=== PATIENT | male | born 1945 | race Caucasian/White ===

== ENCOUNTER 2016-12-31 07:39 | Emergency (ER) | payer BC ==
[~2016-12-31 07:39] MED LIST: Silver Sulfadiazine 1% Crm 50 GM Tube TOP ONE
[2016-12-31] MEDS ORDERED: Silver Sulfadiazine 1% Crm 50 GM Tube TOP ONE (07:46)
== END 2016-12-31 07:49 | disposition home or self-care (01) ==
LOC: MW.ED 07:39
DX: Z53.21 Procedure and treatment not carried out due to patient leaving prior to being seen by health care provider (principal)
CPT/HCPCS: A9270-GY

== ENCOUNTER 2018-06-30 07:11 | Day surgery (SDC) | payer BC, MEDICARE ==
[2018-06-30] MEDS ORDERED: Bupivacaine 0.25%/EPINEPHrine 1:200,000 10 ML SDV ONE (07:31)
[2018-06-30] MEDS ORDERED: Bupivacaine 0.25%/EPINEPHrine 1:200,000 10 ML SDV INJECT ONE (08:00)
[2018-06-30] MEDS ORDERED: Lactated Ringers 1,000 ML IV SCH (08:00)
[2018-06-30] MEDS ORDERED: ceFAZolin 2 GM in Premix Bag 1 BAG IV ONE (08:00)
--- NOTE | 2018-06-30 09:34 | PCM.PREANE ---
Preanesthetic Assessment - Anesthesia/Transfusion/Family Hx Anesthesia History: No Prior Anesthesia Family History of Anesthesia Reaction: No Transfusion History: No Prior Transfusion(s) Intubation History: Unknown - Review of Systems General: No Symptoms Pulmonary: No Symptoms Cardiovascular: No Symptoms Gastrointestinal: No Symptoms Neurological: No Symptoms Other: Reports: None - Physical Assessment NPO Status Date: 06/29/18 NPO Status Time: 20:00 O2 Sat by Pulse Oximetry: 99 Respiratory Rate: 18 Vital Signs: Last Vital Signs Temp 35.8 C 06/30/18 08:25 Pulse Resp 18 06/30/18 08:25 BP 196/90 H 06/30/18 08:25 Pulse Ox 99 06/30/18 08:25 Height: 1.91 m Weight: 117.48 kg ASA Class: 2 Mental Status: Alert & Oriented x3 Airway Class: Mallampati = 2 Dentition: Reports: Normal Dentition Thyro-Mental Finger Breadths: 3 Mouth Opening Finger Breadths: 3 ROM/Head Extension: Full Lungs: Clear to Auscultation, Normal Respiratory Effort Cardiovascular: Regular Rate, Regular Rhythm - Allergies Allergies/Adverse Reactions: Allergies Allergy/AdvReac Type Severity Reaction Status Date / Time No Known Allergies Allergy Verified 06/29/18 11:08 - Blood Blood Available: No - Anesthesia Plan Pre-Op Medication Ordered: None - Acknowledgements Anesthesia Type Planned: MAC Pt an Appropriate Candidate for the Planned Anesthesia: Yes Alternatives and Risks of Anesthesia Discussed w Pt/Guardian: Yes Pt/Guardian Understands and Agrees with Anesthesia Plan: Yes PreAnesthesia Questionnaire HEENT History: Reports: Other (See Below) Other HEENT History: wears glasses Other Genitourinary History: hx of prostate cancer- no treatment Musculoskeletal History: Reports: Neck Pain, Chronic, Other (See Below) Other Musculoskeletal History: hx of neck and shoulder pain, hx of fx left wrist and foot (no hardware) Neurological History: Reports: Other (See Below) Other Neuro History: hx of motion sickness on the sea, not on land Endocrine/Metabolic History: Reports: Obesity/BMI 30+ Oncologic (Cancer) History: Reports: Prostate (patient decided not to have any treatment- diagnosed 4 years ago, doing well so far) - SUBSTANCE USE Smoking Status *Q: Never Smoker Recreational Drug Use History: No - HOME MEDS Home Medications: Home Meds Aspirin 325 mg PO DAILY PRN 06/29/18 [History] - CURRENT (IN HOUSE) MEDS Current Meds: Current Medications Lactated Ringer's (Ringers, Lactated) 1,000 mls @ 125 mls/hr IV ASDIRECTED [facility] Last Admin: 06/30/18 08:45 Dose: 125 mls/hr Discontinued Medications Bupivacaine HCl/Epinephrine Bitart (Marcaine 0.25%/Epinephrine 1:200,000) 10 ml INJECT ONETIME ONE Stop: 06/30/18 08:01 Bupivacaine HCl/Epinephrine Bitart (Marcaine 0.25%/Epinephrine 1:200,000) Confirm Administered Dose 10 ml .ROUTE .STK-MED ONE Stop: 06/30/18 07:32 Cefazolin Sodium/Dextrose 2 gm (/ Premix) 50 mls @ 100 mls/hr IV ONETIME ONE Stop: 06/30/18 08:29
[2018-06-30] MEDS ORDERED: Propofol 200 MG/20 ML SDV ONE (09:55)
[2018-06-30] MEDS ORDERED: Lidocaine 2% 5 ML SDV ONE (09:56)
[2018-06-30] MEDS ORDERED: ceFAZolin 1 GM Vial ONE (10:36)
--- NOTE | 2018-06-30 12:04 | PCM.POSTAN ---
POST ANESTHESIA ASSESSMENT - MENTAL STATUS Mental Status: Alert, Oriented - RESPIRATORY Respiratory Status: Respiratory Rate WNL, Airway Patent, O2 Saturation Stable - CARDIOVASCULAR CV Status: Pulse Rate WNL, Blood Pressure Stable - GASTROINTESTINAL GI Status: No Symptoms - PAIN Pain Score: 0 - POST OP HYDRATION Hydration Status: Adequate & Stable - OBSERVATIONS Free Text/Narrative:: no anesthesia problems, patient skipped recovery room phase of postoperative care.
--- NOTE | 2018-06-30 15:50 | PCM.OPNOTE ---
- General Post-Op/Procedure Note Date of Surgery/Procedure: 06/30/18 Operative Procedure(s): excision of basal cell carcinomas left quaker 3cm and left neck 2cm Pre Op Diagnosis: basal cell left neck and face Post-Op Diagnosis: Same Anesthesia Technique: Local, MAC Primary Surgeon: Thuy Farmer Toy Electric Train Repairer: Karla Lou Complications: None Condition: Good Free Text/Narrative:: Intake & Output 06/29/18 06/30/18 06/30/18 23:59 07:59 15:59 Intake Total 150 Balance 150
--- NOTE | 2018-06-30 23:09 | OR ---
SURGEON: THUY FARMER MD DATE OF PROCEDURE: 06/30/2018 PREOPERATIVE DIAGNOSIS: Basal cell carcinomas of the left yazdanism and left neck. POSTOERATIVE DIAGNOSIS: Basal cell carcinomas of the left yazdanism and left neck. PROCEDURES PERFORMED: Excision of basal cell carcinoma to the left yazdanism of 3 cm with simple closure, and in left neck of 2 cm with simple closure and frozen section. PRIMARY SURGEON: Thuy Farmer MD. MARINE CONSULTANT: SALVADOR Beebe. REASON FOR AND ROLE OF MARINE CONSULTANT: Retraction, prepping, draping, positioning and closure assistance. ANESTHESIA: Local MAC. INDICATIONS: Mr. Spain is a 73-year-old gentleman, who has basal cell carcinoma on the left yazdanism. He was treated previously with cryotherapy and Efudex, and unfortunately, was lost to follow up. The patient has been conservatively managing it, thinking that it would possibly improve on its own. We did discuss risks and benefits today, and I do not think that these will take care of themselves. Fortunately, they are basal cells, and thus excision, is usually the curative. Risks and benefits were discussed and he was in agreement to proceed. Risks were including, but not limited to, bleeding, infection, damage to underlying or overlying structures, possible need for future intervention, and possible scarring. In addition, he does understand that he is at high risk for additional lesions and recurrence in the future. He will continue close vigilance. PROCEDURAL DETAILS: After informed consent was obtained and placed on the chart, the patient was brought to the operating theater and laid in the supine position. After adequate local MAC anesthesia was obtained, the area was prepped and draped, and a time-out was completed to confirm side and site. The left yazdanism lesion was excised for a total length of 3 cm in an elliptical fashion and sent for pathology with a marking stitch at the 12 o'clock position. The left neck lesion was then excised and sent for permanent sections for a total length of 2 cm. This was also marked at 12 o'clock lateral. Frozen sections came back negative on the left yazdanism lesion and meticulous hemostasis was obtained. The wound was closed in a simple fashion over a total length of 3 cm. Once adequately addressed, the left neck was closed in a simple fashion for 2 cm. Once adequately closed, the Steri-Strip in the left yazdanism was dressed with bacitracin. The patient tolerated this well, and all counts and needles were correct at the end of the case. FOLLOWUP INSTRUCTIONS: The patient will see us in the clinic in approximately 1 week or sooner if any problems, questions, or concerns. HEALFRED / YAMIL /[id number]
== END 2018-06-30 12:25 | disposition home or self-care (01) ==
LOC: MW.SDS 07:11
PROVIDERS: ATTEND Plastic Surgery
DX: C44.319 Basal cell carcinoma of skin of other parts of face (principal); C44.41 Basal cell carcinoma of skin of scalp and neck; Z85.46 Personal history of malignant neoplasm of prostate
CPT/HCPCS: 11622; 11643; 88305; 88331; J0690; J2001; J2704; J3490; J7120; 00300

== ENCOUNTER 2019-09-22 03:16 | Emergency (ER) | payer SELFPAY ==
[2019-09-22] MEDS ORDERED: Sodium Chloride 0.9% 2.5 ML Syringe FLUSH PRN (03:32)
[2019-09-22] MEDS ORDERED: Sodium Chloride 0.9% 10 ML Syringe FLUSH PRN (03:32)
[2019-09-22 04:04] LABS: CARBON DIOXIDE,CO2 27.8 mmol/L (21.0-32.0); POTASSIUM,K 3.4 mmol/L (3.5-5.1)
--- NOTE | 2019-09-22 05:59 | EDM.PDOC ---
ED HPI GENERAL MEDICAL PROBLEM - General Chief Complaint: Abdominal Pain Stated Complaint: FAILURE TO VOID Time Seen by Provider: 09/22/19 03:45 Source of Information: Reports: Patient History Limitations: Reports: No Limitations - History of Present Illness INITIAL COMMENTS - FREE TEXT/NARRATIVE: HISTORY AND PHYSICAL: History of present illness: This is a 74-year-old gentleman who presents ER today secondary to suprapubic discomfort secondary to inability to void last night. Patient does have a history significant for prostate problems and is currently being evaluated for enlarged prostate. Patient reports that he is scheduled to have a PSA drawn today. Patient denies any other symptomatology. Patient has any recent fevers, shakes, chills, nausea, vomiting, diarrhea, dysuria, frequency, urgency. Patient reports he has been able to urinate small amounts but is having a lot of discomfort in the suprapubic region. Review of systems: As per history of present illness and below otherwise all systems reviewed and negative. Past medical history: As per history of present illness and as reviewed below otherwise noncontributory. Surgical history: As per history of present illness and as reviewed below otherwise noncontributory. Social history: No reported history of drug or alcohol abuse. Family history: As per history of present illness and as reviewed below otherwise noncontributory. Physical exam: Constitutional: Patient is oriented to person, place, and time. Appears well- developed and well-nourished. No distress. HEENT: Moist mucous membranes Head: Normocephalic and atraumatic Eyes: Right eye exhibits no discharge. Left eye exhibits no discharge. No scleral icterus Neck: Normal range of motion. No tracheal deviation present. Cardiovascular: Normal rate and regular rhythm. Pulmonary: Effort normal, no respiratory distress. Abd: Soft, suprapubic distended, no rebound/guarding, no psoas or obturator signs, no tenderness at Mcberney's point, no Tapia's sign. Pt does not present with an exam that would be consistent with an acute surgical abdomen at this time, mild tenderness palpation suprapubic region Musculoskeletal: Normal range of motion Neurologic: Alert and oriented to person, place and time. Skin: [place], warm and dry. Psychiatric: Normal mood and affect. Behavior is normal. Judgment and thought content normal. Nursing note and vital signs have been reviewed Diagnostics: [] Therapeutics: Suresh catheter placed with approximately 1600 cc of urine expelled. Patient reports immediate relief in pain. CBC and CMP are within normal limits. Patient's creatinine is 2.0 which is likely secondary to possible acute obstruction. This should resolve since the obstruction has now been addressed. Impression: 1. Urinary outlet obstruction with elevated creatinine. Plan: Patient will be discharged home with a Suresh catheter in place. Patient will need to follow-up with his urologist for reevaluation and removal of his catheter. Patient will be started on Hytrin and Flomax in the ED. Definitive disposition and diagnosis as appropriate pending reevaluation and review of above. abdomen Pain Score (Numeric/FACES): 8 - Related Data Allergies Allergy/AdvReac Type Severity Reaction Status Date / Time No Known Allergies Allergy Verified 09/22/19 03:30 Home Meds: Home Meds Aspirin 325 mg PO DAILY PRN 06/29/18 [History] Past Medical History HEENT History: Reports: Impaired Vision, Other (See Below) Other HEENT History: wears glasses Other Genitourinary History: hx of prostate cancer- no treatment Musculoskeletal History: Reports: Neck Pain, Chronic, Other (See Below) Other Musculoskeletal History: hx of neck and shoulder pain, hx of fx left wrist and foot (no hardware) Neurological History: Reports: Other (See Below) Other Neuro History: hx of motion sickness on the sea, not on land Endocrine/Metabolic History: Reports: Obesity/BMI 30+ Oncologic (Cancer) History: Reports: Prostate - Infectious Disease History Infectious Disease History: Reports: Chicken Pox, Measles, Mumps - Past Surgical History HEENT Surgical History: Reports: None Male Surgical History: Reports: None Neurological Surgical History: Reports: None Musculoskeletal Surgical History: Reports: None Oncologic Surgical History: Reports: None Social & Family History - Family History Family Medical History: Noncontributory - Tobacco Use Smoking Status *Q: Never Smoker Second Hand Smoke Exposure: No - Caffeine Use Caffeine Use: Reports: Coffee - Recreational Drug Use Recreational Drug Use: No ED ROS GENERAL - Review of Systems Review Of Systems: Comprehensive ROS is negative, except as noted in HPI. ED EXAM, GENERAL - Physical Exam Exam: See Below Course - Vital Signs Last Recorded V/S: Last Vital Signs Temp 96.9 F 09/22/19 03:18 Pulse 72 09/22/19 04:55 Resp 16 09/22/19 04:55 BP 160/83 H 09/22/19 04:55 Pulse Ox 94 L 09/22/19 04:55 - Orders/Labs/Meds Orders: Active Orders 24 hr Category Date Time Status Suresh Catheter Insertion [Insert Urinary Catheter] [OM. Care 09/22/19 03:45 Ordered PC] Q24H Urinary Catheter Assessment [RC] ASDIRECTED Care 09/22/19 03:33 Active Sodium Chloride 0.9% [Saline Flush] Med 09/22/19 03:32 Active 10 ml FLUSH ASDIRECTED PRN Sodium Chloride 0.9% [Saline Flush] Med 09/22/19 03:32 Active 2.5 ml FLUSH ASDIRECTED PRN Saline Lock Insert [OM.PC] Stat Oth 09/22/19 03:32 Ordered Medication Orders Sodium Chloride (Saline Flush) 10 ml FLUSH ASDIRECTED PRN PRN Reason: Keep Vein Open Sodium Chloride (Saline Flush) 2.5 ml FLUSH ASDIRECTED PRN PRN Reason: Keep Vein Open Labs: Laboratory Tests 09/22/19 09/22/19 09/22/19 Range/Units 03:35 03:35 03:35 WBC 11.08 H (4.0-11.0) K/uL RBC 4.78 (4.50-5.90) M/uL Hgb 15.4 (13.0-17.0) g/dL Hct 43.0 (38.0-50.0) % MCV 90.0 (80.0-98.0) fL MCH 32.2 H (27.0-32.0) pg MCHC 35.8 (31.0-37.0) g/dL RDW Std Deviation 41.1 (28.0-62.0) fl RDW Coeff of Jose 12 (11.0-15.0) % Plt Count 209 (150-400) K/uL MPV 10.90 (7.40-12.00) fL Neut % (Auto) 75.2 (48.0-80.0) % Lymph % (Auto) 14.5 L (16.0-40.0) % Atkinson % (Auto) 8.8 (0.0-15.0) % Eos % (Auto) 1.3 (0.0-7.0) % Baso % (Auto) 0.2 (0.0-1.5) % Neut # (Auto) 8.3 H (1.4-5.7) K/uL Lymph # (Auto) 1.6 (0.6-2.4) K/uL Atkinson # (Auto) 1.0 H (0.0-0.8) K/uL Eos # (Auto) 0.1 (0.0-0.7) K/uL Baso # (Auto) 0.0 (0.0-0.1) K/uL Nucleated RBC % 0.0 /100WBC Nucleated RBCs # 0 K/uL Sodium 137 (136-148) mmol/L Potassium 3.4 L (3.5-5.1) mmol/L Chloride 101 (98-107) mmol/L Carbon Dioxide 27.8 (21.0-32.0) mmol/L BUN 19 H (7.0-18.0) mg/dL Creatinine 2.0 H (0.8-1.3) mg/dL Est Cr Clr Drug Dosing 38.58 mL/min Estimated GFR (MDRD) 32.6 ml/min Glucose 148 H (74-106) mg/dL Calcium 8.3 L (8.5-10.1) mg/dL Total Bilirubin 1.3 H (0.2-1.0) mg/dL AST 20 (15-37) IU/L ALT 22 (14-63) IU/L Alkaline Phosphatase 76 (46-116) U/L Total Protein 7.2 (6.4-8.2) g/dL Albumin 3.6 (3.4-5.0) g/dL Globulin 3.6 (2.6-4.0) g/dL Albumin/Globulin Ratio 1.0 (0.9-1.6) PSA Screen 586.31 H (0.05-4.00) ng/mL Urine Color Urine Appearance Urine pH (5.0-8.0) Ur Specific Caspar (1.001-1.035) Urine Protein (NEGATIVE) mg/dL Urine Glucose (UA) (NEGATIVE) mg/dL Urine Ketones (NEGATIVE) mg/dL Urine Occult Blood (NEGATIVE) Urine Nitrite (NEGATIVE) Urine Bilirubin (NEGATIVE) Urine Urobilinogen (<2.0) EU/dL Ur Leukocyte Esterase (NEGATIVE) Urine RBC (0-2/HPF) Urine WBC (0-5/HPF) Ur Epithelial Cells (NONE-FEW) Urine Bacteria (NEGATIVE) Urine Mucus (NONE-MOD) 09/22/19 Range/Units 03:38 WBC (4.0-11.0) K/uL RBC (4.50-5.90) M/uL Hgb (13.0-17.0) g/dL Hct (38.0-50.0) % MCV (80.0-98.0) fL MCH (27.0-32.0) pg MCHC (31.0-37.0) g/dL RDW Std Deviation (28.0-62.0) fl RDW Coeff of Jose (11.0-15.0) % Plt Count (150-400) K/uL MPV (7.40-12.00) fL Neut % (Auto) (48.0-80.0) % Lymph % (Auto) (16.0-40.0) % Atkinson % (Auto) (0.0-15.0) % Eos % (Auto) (0.0-7.0) % Baso % (Auto) (0.0-1.5) % Neut # (Auto) (1.4-5.7) K/uL Lymph # (Auto) (0.6-2.4) K/uL Atkinson # (Auto) (0.0-0.8) K/uL Eos # (Auto) (0.0-0.7) K/uL Baso # (Auto) (0.0-0.1) K/uL Nucleated RBC % /100WBC Nucleated RBCs # K/uL Sodium (136-148) mmol/L Potassium (3.5-5.1) mmol/L Chloride (98-107) mmol/L Carbon Dioxide (21.0-32.0) mmol/L BUN (7.0-18.0) mg/dL Creatinine (0.8-1.3) mg/dL Est Cr Clr Drug Dosing mL/min Estimated GFR (MDRD) ml/min Glucose (74-106) mg/dL Calcium (8.5-10.1) mg/dL Total Bilirubin (0.2-1.0) mg/dL AST (15-37) IU/L ALT (14-63) IU/L Alkaline Phosphatase (46-116) U/L Total Protein (6.4-8.2) g/dL Albumin (3.4-5.0) g/dL Globulin (2.6-4.0) g/dL Albumin/Globulin Ratio (0.9-1.6) PSA Screen (0.05-4.00) ng/mL Urine Color DARK YELLOW Urine Appearance CLEAR Urine pH 6.5 (5.0-8.0) Ur Specific Caspar 1.020 (1.001-1.035) Urine Protein NEGATIVE (NEGATIVE) mg/dL Urine Glucose (UA) NEGATIVE (NEGATIVE) mg/dL Urine Ketones NEGATIVE (NEGATIVE) mg/dL Urine Occult Blood TRACE-INTACT H (NEGATIVE) Urine Nitrite NEGATIVE (NEGATIVE) Urine Bilirubin NEGATIVE (NEGATIVE) Urine Urobilinogen 0.2 (<2.0) EU/dL Ur Leukocyte Esterase NEGATIVE (NEGATIVE) Urine RBC 4-6 (0-2/HPF) Urine WBC 0-2 (0-5/HPF) Ur Epithelial Cells FEW (NONE-FEW) Urine Bacteria FEW (NEGATIVE) Urine Mucus LIGHT (NONE-MOD) Meds: Medications Generic Name Dose Route Start Last Admin Trade Name Freq PRN Reason Stop Dose Admin Sodium Chloride 10 ml 09/22/19 03:32 Saline Flush FLUSH ASDIRECTED PRN Keep Vein Open Sodium Chloride 2.5 ml 09/22/19 03:32 Saline Flush FLUSH ASDIRECTED PRN Keep Vein Open Departure - Departure Time of Disposition: 05:57 Disposition: Home, Self-Care 01 Condition: Good Clinical Impression: Elevated serum creatinine, Acute urinary retention, Urinary outflow obstruction - Discharge Information *PRESCRIPTION DRUG MONITORING PROGRAM REVIEWED*: Not Applicable *COPY OF PRESCRIPTION DRUG MONITORING REPORT IN PATIENT CELIO: Not Applicable Instructions: Indwelling Urinary Catheter Care, Adult, Acute Urinary Retention, Male Referrals: Tyler Das MD [Primary Care Provider] - Additional Instructions: You were seen and evaluated today secondary to acute urinary retention which is most likely secondary to an enlarged prostate. You will be discharged home with a leg Suresh catheter in place. You will be started on Flomax to assist when your catheter is removed. Please make an appointment to see your doctor for further evaluation of your urinary obstruction. Please keep your appointment today with Dr. Dey. You will be started on Flomax 1 pill once a day. The following information is given to patients seen in the emergency department who are being discharged to home. This information is to outline your options for follow-up care. We provide all patients seen in our emergency department with a follow-up referral. The need for follow-up, as well as the timing and circumstances, are variable depending upon the specifics of your emergency department visit. If you don't have a primary care physician on staff, we will provide you with a referral. We always advise you to contact your personal physician following an emergency department visit to inform them of the circumstance of the visit and for follow-up with them and/or the need for any referrals to a consulting specialist. The emergency department will also refer you to a specialist when appropriate. This referral assures that you have the opportunity for follow-up care with a specialist. All of these measure are taken in an effort to provide you with optimal care, which includes your follow-up. Under all circumstances we always encourage you to contact your private physician who remains a resource for coordinating your care. When calling for follow-up care, please make the office aware that this follow-up is from your recent emergency room visit. If for any reason you are refused follow-up, please contact the [facility] Emergency Department at and asked to speak to the emergency department charge nurse. Sepsis Event Note (ED) - Evaluation Sepsis Screening Result: No Definite Risk - Focused Exam Vital Signs: Vital Signs Temp Pulse Resp BP Pulse Ox 09/22/19 04:55 72 16 160/83 H 94 L 09/22/19 04:25 74 17 159/80 H 95 09/22/19 03:55 74 18 175/84 H 95 09/22/19 03:18 96.9 F 89 18 191/98 H 95 - My Orders Last 24 Hours: My Active Orders 09/22/19 03:32 Sodium Chloride 0.9% [Saline Flush] 10 ml FLUSH ASDIRECTED PRN Sodium Chloride 0.9% [Saline Flush] 2.5 ml FLUSH ASDIRECTED PRN Saline Lock Insert [OM.PC] Stat 09/22/19 03:33 Urinary Catheter Assessment [RC] ASDIRECTED 09/22/19 03:45 Suresh Catheter Insertion [Insert Urinary Catheter] [OM.PC] Q24H - Assessment/Plan Last 24 Hours: My Active Orders 09/22/19 03:32 Sodium Chloride 0.9% [Saline Flush] 10 ml FLUSH ASDIRECTED PRN Sodium Chloride 0.9% [Saline Flush] 2.5 ml FLUSH ASDIRECTED PRN Saline Lock Insert [OM.PC] Stat 09/22/19 03:33 Urinary Catheter Assessment [RC] ASDIRECTED 09/22/19 03:45 Suresh Catheter Insertion [Insert Urinary Catheter] [OM.PC] Q24H
[2019-09-22] MEDS ORDERED: Tamsulosin 0.4 MG Cap.ER PO ONE (06:00)
== END 2019-09-22 06:23 | disposition home or self-care (01) ==
LOC: MW.ED 03:16
DX: N40.1 Benign prostatic hyperplasia with lower urinary tract symptoms (principal); N13.8 Other obstructive and reflux uropathy; R33.9 Retention of urine, unspecified; E66.9 Obesity, unspecified; Z68.32 Body mass index [BMI] 32.0-32.9, adult; R79.89 Other specified abnormal findings of blood chemistry
CPT/HCPCS: 36415; 51702; 80053; 81001; 85025; 99284; A9270; G0103

== ENCOUNTER 2019-10-10 17:35 | Observation (INO) | payer MEDICARE ==
[~2019-10-10 17:35] MED LIST changes: +Lactated Ringers 1,000 ML IV SCH; -Silver Sulfadiazine 1% Crm 50 GM Tube TOP ONE; +Sodium Chloride 0.9% 10 ML SDV IV PRN; +Sodium Chloride 0.9% 10 ML Syringe FLUSH PRN; +Sodium Chloride 0.9% 2.5 ML Syringe FLUSH PRN
[2019-10-10] MEDS: ceFAZolin 2 GM in Premix Bag 1 BAG IV SCH ×2 (18:28→22:13)
[2019-10-11] MEDS: ceFAZolin 2 GM in Premix Bag 1 BAG IV SCH ×5 (04:22→23:59)
[2019-10-11] MEDS ORDERED: Ondansetron 4 MG/2 ML SDV ONE (07:14)
[2019-10-11] MEDS ORDERED: Propofol 200 MG/20 ML SDV ONE (07:14)
[2019-10-11] MEDS ORDERED: Midazolam 1 MG/ML 2 ML SDV ONE (07:15)
[2019-10-11] MEDS ORDERED: fentaNYL 100 MCG/2 ML SDV ONE (07:15)
[2019-10-11] MEDS ORDERED: ceFAZolin 1 GM Vial ONE (07:36)
[2019-10-11] MEDS ORDERED: Sodium Chloride 0.9% 20 ML ONE (07:36)
--- NOTE | 2019-10-11 07:36 | PCM.PREANE ---
Preanesthetic Assessment - Anesthesia/Transfusion/Family Hx Anesthesia History: Prior Anesthesia Without Reaction Family History of Anesthesia Reaction: No Transfusion History: No Prior Transfusion(s) Intubation History: Unknown - Review of Systems General: No Symptoms Pulmonary: No Symptoms Cardiovascular: No Symptoms Gastrointestinal: No Symptoms Neurological: No Symptoms Other: Reports: None - Physical Assessment Vital Signs: Last Vital Signs Temp 97.6 F 10/11/19 04:00 Pulse 63 10/11/19 04:00 Resp 18 10/11/19 04:00 BP 149/89 H 10/11/19 04:00 Pulse Ox 96 10/11/19 04:00 Height: 6 ft 3 in Weight: 117.282 kg ASA Class: 2 Mental Status: Alert & Oriented x3 Airway Class: Mallampati = 2 Dentition: Reports: Normal Dentition ROM/Head Extension: Full Lungs: Clear to Auscultation, Normal Respiratory Effort Cardiovascular: Regular Rate, Regular Rhythm - Lab Values: Laboratory Last Values COVID-19 (SERGEI) NEGATIVE (NEGATIVE) 10/10/19 18:45 - Allergies Allergies/Adverse Reactions: Allergies Allergy/AdvReac Type Severity Reaction Status Date / Time No Known Allergies Allergy Verified 09/22/19 03:30 - Blood Blood Available: No - Anesthesia Plan Pre-Op Medication Ordered: None - Acknowledgements Anesthesia Type Planned: Spinal Pt an Appropriate Candidate for the Planned Anesthesia: Yes Alternatives and Risks of Anesthesia Discussed w Pt/Guardian: Yes Pt/Guardian Understands and Agrees with Anesthesia Plan: Yes Additional Comments: PMH: prostate ca, urinary retention- now has mistry, creat elevation with urin retention PLAN: spinal with sedation PreAnesthesia Questionnaire HEENT History: Reports: Impaired Vision, Other (See Below) Other HEENT History: wears glasses Genitourinary History: Reports: Prostate Disorder, Retention, Urinary Other Genitourinary History: hx of prostate cancer- no treatment Musculoskeletal History: Reports: Neck Pain, Chronic, Other (See Below) Other Musculoskeletal History: hx of neck and shoulder pain, hx of fx left wrist and foot (no hardware) Neurological History: Reports: Other (See Below) Other Neuro History: hx of motion sickness on the sea, not on land Endocrine/Metabolic History: Reports: Obesity/BMI 30+ Oncologic (Cancer) History: Reports: Prostate - Infectious Disease History Infectious Disease History: Reports: Chicken Pox, Measles, Mumps - Past Surgical History HEENT Surgical History: Reports: None Male Surgical History: Reports: None Neurological Surgical History: Reports: None Musculoskeletal Surgical History: Reports: None Oncologic Surgical History: Reports: None Dermatological Surgical History: Reports: Skin Biopsy - SUBSTANCE USE Smoking Status *Q: Never Smoker Second Hand Smoke Exposure: No Recreational Drug Use History: No - HOME MEDS Home Medications: Home Meds Aspirin 325 mg PO DAILY PRN 06/29/18 [History] Tamsulosin HCl [Flomax] 0.4 mg PO DAILY #14 capsule 09/22/19 [Rx] - CURRENT (IN HOUSE) MEDS Current Meds: Current Medications Lactated Ringer's (Ringers, Lactated) 1,000 mls @ 100 mls/hr IV ASDIRECTED [facility] Last Admin: 10/10/19 18:27 Dose: 100 mls/hr Documented by: Cefazolin Sodium/Dextrose 2 gm (/ Premix) 50 mls @ 100 mls/hr IV Q6H [facility] Last Admin: 10/11/19 04:22 Dose: 100 mls/hr Documented by: Tobramycin 120 mg/ Sodium (Chloride) 103 mls @ 103 mls/hr IV Q12H [facility] Last Admin: 10/11/19 05:17 Dose: 103 mls/hr Documented by: Sodium Chloride (Saline Flush) 10 ml FLUSH ASDIRECTED PRN PRN Reason: Keep Vein Open Sodium Chloride (Saline Flush) 2.5 ml FLUSH ASDIRECTED PRN PRN Reason: Keep Vein Open Sodium Chloride (Normal Saline) 10 ml IV ASDIRECTED PRN PRN Reason: IV Use Discontinued Medications Fentanyl (Sublimaze) Confirm Administered Dose 100 mcg .ROUTE .STK-MED ONE Stop: 10/11/19 07:16 Midazolam HCl (Versed 1 Mg/Ml) Confirm Administered Dose 2 mg .ROUTE .STK-MED ONE Stop: 10/11/19 07:16 Ondansetron HCl (Zofran) Confirm Administered Dose 4 mg .ROUTE .STK-MED ONE Stop: 10/11/19 07:15 Propofol (Diprivan 20 Ml) Confirm Administered Dose 200 mg .ROUTE .STK-MED ONE Stop: 10/11/19 07:15
[2019-10-11] MEDS ORDERED: ePHEDrine 50 MG/ML SDV ONE (09:37)
[2019-10-11] MEDS ORDERED: Belladonna Alkaloids/Opium 16.2-30 MG Supp RECTAL PRN (09:42)
--- NOTE | 2019-10-11 10:31 | PCM.POSTAN ---
POST ANESTHESIA ASSESSMENT - MENTAL STATUS Mental Status: Alert, Oriented - VITAL SIGNS Vital Signs: Last Vital Signs Temp 35.6 C L 10/11/19 09:45 Pulse 47 L 10/11/19 10:25 Resp 14 10/11/19 10:25 BP 136/55 L 10/11/19 10:25 Pulse Ox 97 10/11/19 10:25 - RESPIRATORY Respiratory Status: Respiratory Rate WNL, Airway Patent, O2 Saturation Stable - CARDIOVASCULAR CV Status: Pulse Rate WNL, Blood Pressure Stable - GASTROINTESTINAL GI Status: No Symptoms - PAIN Pain Score: 0 - POST OP HYDRATION Hydration Status: Adequate & Stable
[2019-10-11] MEDS ORDERED: ceFAZolin 2 GM in Premix Bag 1 BAG IV SCH (12:00)
[2019-10-11] MEDS: D5 1/2 NS w/ 20 mEq/L KCl 1,000 ML IV SCH ×2 (12:24→23:08)
--- NOTE | 2019-10-11 12:52 | OR ---
SURGEON: Ally Wolf M.D. DATE OF PROCEDURE: 10/11/2019 PREOPERATIVE DIAGNOSES: Urinary retention, locally advanced prostate cancer. POSTOPERATIVE DIAGNOSES: Urinary retention, locally advanced prostate cancer. OPERATION: Transurethral resection of the prostate. DESCRIPTION OF PROCEDURE: The patient was given spinal anesthesia. He was placed in dorsal lithotomy position, prepped and draped in sterile drapes. 26 and 28 ultrasounds were introduced in the bladder without difficulty. The 28 resectoscope was introduced in the bladder and the resection was done in the usual manner going on from the floor of the prostatic urethra laterally and anteriorly. At the end of the resection, all prostatic chips were removed. Both ureteral orifices were intact. The area of the external sphincter was intact. A 22 three-way Suresh catheter with 40 mL in the balloon was left in the bladder connected to TUR drip. The patient tolerated the procedure well. Estimated blood loss under 200 mL. ROXANNE / YAMIL /[id number]
[2019-10-11] MEDS: Bacitracin Oint 28.35 GM Tube TOP SCH ×2 (14:43→23:00)
[2019-10-11] MEDS: Docusate Sodium 100 MG Cap PO SCH ×2 (22:14→23:58)
[2019-10-12] MEDS: Bacitracin Oint 28.35 GM Tube TOP SCH ×3 (05:47→22:55)
[2019-10-12] MEDS: ceFAZolin 2 GM in Premix Bag 1 BAG IV SCH (06:59)
--- NOTE | 2019-10-12 07:58 | PCM48HPAN ---
Post Anesthesia Note - EVALUATION WITHIN 48HRS OF ANESTHETIC Vital Signs in Normal Range: Yes Patient Participated in Evaluation: Yes Respiratory Function Stable: Yes Airway Patent: Yes Cardiovascular Function Stable: Yes Hydration Status Stable: Yes Pain Control Satisfactory: Yes Nausea and Vomiting Control Satisfactory: Yes Mental Status Recovered: Yes Vital Signs: Last Vital Signs Temp 36.9 C 10/12/19 04:00 Pulse 67 10/12/19 04:00 Resp 19 10/12/19 04:00 BP 131/67 10/12/19 04:00 Pulse Ox 92 L 10/12/19 04:00 - COMMENTS/OBSERVATIONS Free Text/Narrative:: sitting up in the chair
[2019-10-12] MEDS: Docusate Sodium 100 MG Cap PO SCH ×2 (09:34→20:11)
--- NOTE | 2019-10-12 09:41 | PCM.SN.2 ---
- Free Text/Narrative Note: 10/11 mireya dela cruz,red gold
--- NOTE | 2019-10-12 21:12 | PCM.SN.2 ---
- Free Text/Narrative Note: 10/11 doing well
[2019-10-13] MEDS: Bacitracin Oint 28.35 GM Tube TOP SCH (08:12)
[2019-10-13] MEDS: Docusate Sodium 100 MG Cap PO SCH (08:55)
--- NOTE | 2019-10-13 14:13 | DISCH ---
DATE OF DISCHARGE: 10/13/2019 PRIMARY CARE PHYSICIAN: None PCP A 74-year-old with prostate CA and urinary retention. He was admitted to the hospital, had his catheter taken out, was given IV antibiotics, and was taken to the operating room 24 hours later, where he had a TURP. Postoperatively, he did well. The catheter was removed on the second postoperative day, and he was able to void. Pathology is still pending. He will be seen again in 3 weeks for followup. ROXANNE LOBO /[id number]
== END 2019-10-13 14:10 | disposition home or self-care (01) ==
LOC: MW.SDS 17:35 → MW.ICU 17:35 → MW.SDS 10-11 10:55 → MW.MS 10-11 10:57
PROVIDERS: ADMIT Urology; ATTEND Urology
DX: C61 Malignant neoplasm of prostate (principal); E66.9 Obesity, unspecified; Z79.82 Long term (current) use of aspirin; Z20.828 Contact with and (suspected) exposure to other viral communicable diseases; Z79.899 Other long term (current) drug therapy; Z68.31 Body mass index [BMI] 31.0-31.9, adult
CPT/HCPCS: 51701; 51702; 52601; 88305; 96361; 96365; 96366; 96367; 96376; A9270; G0378; J0690; J2250; J2405; J2704; J3010; J3260; J3480; J7050; J7120; U0002; 00914

== ENCOUNTER 2020-03-24 04:05 | Emergency (ER) | payer OTHER, MEDICARE ==
[2020-03-24] MEDS ORDERED: Bupivacaine 0.5% 10 ML SDV INJECT ONE (04:27)
--- NOTE | 2020-03-24 04:28 | EDM.PDOC ---
ED HPI GENERAL MEDICAL PROBLEM - General Chief Complaint: Laceration Stated Complaint: FALL Time Seen by Provider: 03/24/20 04:13 Source of Information: Reports: Patient, Old Records History Limitations: Reports: No Limitations - History of Present Illness INITIAL COMMENTS - FREE TEXT/NARRATIVE: This is a very pleasant 74-year-old gentleman with a past medical history of hypertension and prostate cancer (not on radiation or chemotherapy) presenting with injuries after a fall. Patient was bending over to fruit picker something that dropped on the floor when an automatic closing door struck him, causing him to fall forward, striking his face on a doorway. He did not lose consciousness. There was no preceding chest pain or shortness of breath. He arrives to the emergency department with wounds to his face and hands, complaining of pain to the face. He states his tetanus immunization is up-to-date. ROS: A 10-point review of systems was negative, except as noted in the HPI (or in the ROS section of this note). Past medical history: Reviewed, no additional pertinent history. Surgical history: Reviewed in system, no additional pertinent history. Social history: Reviewed in system, no additional pertinent history. Family history: Reviewed in system, no additional pertinent history. PHYSICAL EXAM Vital signs reviewed. Nursing notes reviewed. Constitutional: Awake, alert, non-distressed. Head: Linear laceration above the left eyebrow. Superficial abrasions to the left side of the nose and above the left eyebrow. No raccoons eyes or barnes sign. Neck: Supple, nontender. Eyes: Pupils 3 mm bilaterally. EOMI, conjunctiva normal, no discharge, no scleral icterus. Ears, Nose, Throat: External ears and nose normal, moist oral mucosa. TMs and EACs clear bilaterally, no hemotympanum. Cardiovascular: 2+ radial pulses bilaterally, capillary refill less than 2 seconds. Pulmonary: normal work of breathing, no accessory muscle use. Abdomen/GI: Soft, nontender, nondistended, no guarding or rigidity, no masses. Musculoskeletal: No deformities. Swelling the dorsal surface of the right hand. Integumentary: Appropriate color for ethnicity, warm, dry, no pallor or jaundice, no rash. Superficial abrasions to the dorsal surfaces of both hands. Neurologic: Alert, answering questions appropriately, normal speech, no facial droop, moving all extremities well. 5/5 strength in the bilateral upper extremities and sensation intact to light touch. Psychiatric: Appropriate mood and affect, normal thought process. This patient was seen and evaluated during the 2019 SARS-CoV-2 novel coronavirus pandemic period. Community viral transmission is ongoing at time of this encounter and the emergency department is operating under pandemic response procedures. - Related Data Allergies Allergy/AdvReac Type Severity Reaction Status Date / Time No Known Allergies Allergy Verified 03/24/20 04:12 Home Meds: Home Meds . [No Known Home Meds] 03/24/20 [History] Past Medical History HEENT History: Reports: Impaired Vision, Other (See Below) Other HEENT History: wears glasses Genitourinary History: Reports: Prostate Disorder, Retention, Urinary Other Genitourinary History: hx of prostate cancer- no treatment Musculoskeletal History: Reports: Neck Pain, Chronic, Other (See Below) Other Musculoskeletal History: hx of neck and shoulder pain, hx of fx left wrist and foot (no hardware) Neurological History: Reports: Other (See Below) Other Neuro History: hx of motion sickness on the sea, not on land Endocrine/Metabolic History: Reports: Obesity/BMI 30+ Oncologic (Cancer) History: Reports: Prostate - Infectious Disease History Infectious Disease History: Reports: Chicken Pox, Measles, Mumps - Past Surgical History HEENT Surgical History: Reports: None Male Surgical History: Reports: None Neurological Surgical History: Reports: None Musculoskeletal Surgical History: Reports: None Oncologic Surgical History: Reports: None Dermatological Surgical History: Reports: Skin Biopsy Social & Family History - Family History Family Medical History: No Pertinent Family History - Caffeine Use Caffeine Use: Reports: Coffee, Tea ED ROS GENERAL - Review of Systems Review Of Systems: See Below ED EXAM, SKIN/RASH Exam: See Below ED SKIN PROCEDURES - Laceration/Wound Repair Left Face Appearance: Superficial Anesthetic Type: Local Local Anesthesia - Bupivicaine (Marcaine): 0.5% Plain Local Anesthetic Volume: 2cc Skin Prep: Saline Exploration/Debridement/Repair: Wound Explored, In a Bloodless Field, No Foreign Material Found Closed with: Sutures Lac/Wound length In cm: 3 Suture Size: 4-0 # of Sutures: 3 Suture Type: Nylon Drain Placement: No Tetanus Status Addressed: Yes Complications: No Course - Vital Signs Text/Narrative:: 74-year-old male presenting with injuries after a fall. Has laceration to left side of forehead that will need repair along with some superficial abrasions to the hands and face. This fall seems to be mechanical, patient denies any preceding chest discomfort, palpitations, or shortness of breath. He states that he lost his balance bending over to fruit picker something out of his jacket pocket and was pushed by an automatic door that was closing, causing him to stumble forward and strike his face on either way. Head CT shows mild left supraorbital and frontal scalp swelling with no sign of fracture of the skull or any sign of brain injury. 5:10 AM: Laceration repair performed without incident. CT cervical spine negative for bony injury, did show some degenerative disease. X-rays of the right hand are negative for bony injury. Patient feeling better, declines pain medications for right lateral neck pain. Given negative work-up, stable to discharge to self-care with instructions to return to ED for suture removal in 5 to 7 days, recommend [id number] Tylenol Motrin as needed for pain. Plan: Patient is stable to discharge home with outpatient primary care clinic follow-up. Strict emergency department return precautions were provided, patient indicated understanding. All questions were answered prior to departure. Discharged in good condition. Last Recorded V/S: Last Vital Signs Temp 35.9 C L 03/24/20 04:13 Pulse 93 03/24/20 04:13 Resp 17 03/24/20 04:13 BP 186/97 H 03/24/20 04:13 Pulse Ox 97 03/24/20 04:13 - Orders/Labs/Meds Meds: Medications Discontinued Medications Generic Name Dose Route Start Last Admin Trade Name Jean PRN Reason Stop Dose Admin Bupivacaine HCl 10 ml 03/24/20 04:27 03/24/20 04:54 Sensorcaine-Mpf 0.5% INJECT 03/24/20 04:28 10 ml ONETIME ONE Administration Departure - Departure Time of Disposition: 05:13 Disposition: Home, Self-Care 01 Condition: Good Clinical Impression: Abrasions of multiple sites Accidental fall Qualifiers: Encounter type: initial encounter Qualified Code(s): W19.XXXA - Unspecified fall, initial encounter Laceration of forehead Qualifiers: Encounter type: initial encounter Qualified Code(s): S01.81XA - Laceration without foreign body of other part of head, initial encounter - Discharge Information *PRESCRIPTION DRUG MONITORING PROGRAM REVIEWED*: Not Applicable *COPY OF PRESCRIPTION DRUG MONITORING REPORT IN PATIENT CELIO: Not Applicable Instructions: Laceration Care, Adult, Sutured Wound Care Referrals: Emergency Room [Provider Group] - 1 Week (For suture removal.) Forms: ED Department Discharge Additional Instructions: You were seen in the emergency department for injuries after a fall. X-rays of your right hand and CT scans of your head and neck did not show any significant injuries. We placed several sutures to close the laceration on your forehead. You will need to come back to the emergency department in 5 to 7 days to have the sutures removed. I recommend [id number] extra strength acetaminophen (1000 mg every 6 hours) and ibuprofen (400 mg every 6 hours) to help treat any significant pain. Warning signs to come back to the ER include: Severe headache, vision changes, nausea and vomiting, chest pain, shortness of breath, or any other new or concerning symptoms Please return the emergency department immediately if your symptoms worsen or if you feel worse. Thank you for choosing the [facility] emergency department in [place] for your medical needs today. It was a pleasure caring for you. The following information is given to patients seen in the emergency department who are being discharged. This information is to outline your options for follow-up care. We provide all patients seen in our emergency department with a follow-up referral. The need for follow-up, as well as the timing and circumstances, are variable depending upon the specifics of your emergency department visit. If you don't have a primary care physician on staff, we will provide you with a referral. We always advise you to contact your personal physician following an emergency department visit to inform them of the circumstance of the visit and for follow-up with them and/or the need for any referrals to a consulting specialist. The emergency department will also refer you to a specialist when appropriate. This referral assures that you have the opportunity for follow-up care with a specialist. All of these measure are taken in an effort to provide you with optimal care, which includes your follow-up. Under all circumstances we always encourage you to contact your private physician who remains a resource for coordinating your care. When calling for follow-up care, please make the office aware that this follow-up is from your recent emergency room visit. If for any reason you are refused follow-up, please contact the [facility] Emergency Department at and asked to speak to the emergency department charge nurse. If you do not have a primary care physician that is caring for you, you can contact these clinics below to set up an appointment to establish care: [facility] - Primary Care [address] [place] [id number] [place] [address] Sepsis Event Note (ED) - Evaluation Sepsis Screening Result: No Definite Risk - Focused Exam Vital Signs: Vital Signs Temp Pulse Resp BP Pulse Ox 03/24/20 04:13 35.9 C L 93 17 186/97 H 97
--- NOTE | 2020-03-24 04:54 | CT ---
INDICATION: Status post fall, striking face on door. Abrasion above the left eye. COMPARISON: None available. TECHNIQUE: CT examination of the head was performed with 3 mm thick axial, sagittal, and coronal sections without intravenous contrast. Images were obtained from the vertex of the skull through the skull base, and I examined the images with the brain and bone windows. Please note that all CT scans at this facility use dose modulation, iterative reconstruction, and/or weight-based dosing when appropriate to reduce radiation dose to as low as reasonably achievable. FINDINGS: : There is mild left supraorbital and frontal scalp swelling with no sign of fracture of the underlying left superior orbital rim or frontal calvarium. There is no sign of injury to the underlying brain. The brain is normal in appearance for the patient`s age on today`s study, with no sign of mass lesion, mass effect, hemorrhage, or edema. There is prominent dilatation of the ventricles and moderate dilatation of the sulci representing age-appropriate atrophy. There is moderate periventricular and subcortical white matter hypodensity representing age-appropriate small vessel ischemia. 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 The visualized portions of the orbits are normal in appearance. The visualized portions of the paranasal sinuses and mastoids are clear. The osseous structures are normal in their appearance with no sign of abnormality in the skull base or calvarium. IMPRESSION: Mild left supraorbital and frontal scalp swelling with no sign of fracture of the underlying left superior orbital rim or frontal calvarium. No sign of injury to the underlying brain. No sign of closed head injury. Prominent, age-appropriate atrophy. Moderate, age-appropriate small-vessel ischemic changes. Please note that all CT scans at this facility use dose modulation, iterative reconstruction, and/or weight-based dosing when appropriate to reduce radiation dose to as low as reasonably achievable. Dictated by James Stark MD @ Mar 24 2020 4:49AM Signed by Dr. James Stark @ Mar 24 2020 4:53AM
--- NOTE | 2020-03-24 05:05 | CT ---
INDICATION: Status post fall, striking the left forehead. Pain. COMPARISON: None available TECHNIQUE: CT examination of the cervical spine is performed without contrast using spiral technique. 2 mm thick axial, sagittal and coronal reconstructions were made. Please note that all CT scans at this facility use dose modulation, iterative reconstruction, and/or weight-based dosing when appropriate to reduce radiation dose to as low as reasonably achievable. FINDINGS: : There is no sign of fracture or subluxation. The cervical vertebral bodies are normal in height and are in anatomic alignment. There is no sign of prevertebral soft tissue swelling. There is moderate C5-6 and C6-7 disc degenerative disease with mild diffuse disc bulging and mild posterior osteophytic ridging. There is mild bilateral C6-7 foraminal stenosis from uncovertebral joint hypertrophy. There is mild C7-T1 disc degenerative disease with moderate left and mild right foraminal stenosis from uncovertebral joint hypertrophy. There is prominent anterior ligamentous ossification at see 2-3 with probable fusion in anatomic alignment. There is moderate, age-appropriate primary osteoarthritis of the atlantodental articulation. There is moderate calcification of the right aortic bifurcation. The airway structures are normal in appearance. The visualized skull base is normal in appearance. The visualized inferior brain is normal in appearance for the patient`s age. The apices of the lungs are clear. IMPRESSION: No sign of acute osseous injury to the cervical spine. Moderate C5-6 and C6-7 disc degenerative disease. Mild C7-T1 disc degenerative disease. Please note that all CT scans at this facility use dose modulation, iterative reconstruction, and/or weight-based dosing when appropriate to reduce radiation dose to as low as reasonably achievable. Dictated by James Stark MD @ Mar 24 2020 4:49AM Signed by Dr. James Stark @ Mar 24 2020 5:04AM
--- NOTE | 2020-03-24 05:09 | CR ---
INDICATION: Right-handed pain swelling after fall. COMPARISON: None available. TECHNIQUE: The right hand is examined with PA, lateral, and oblique views. FINDINGS: There is no sign of fracture or dislocation. The soft tissues are normal in appearance without sign of radio-opaque foreign body. There is moderate primary osteoarthritis of the 1st CMC joint. There is minimal primary osteoarthritis of the 3rd MCP joint. IMPRESSION: No sign of acute osseous injury. 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 Dictated by James Stark MD @ Mar 24 2020 5:04AM Signed by Dr. James Stark @ Mar 24 2020 5:06AM
== END 2020-03-24 05:27 | disposition home or self-care (01) ==
LOC: MW.ED 04:05
DX: S01.81XA Laceration without foreign body of other part of head, initial encounter (principal); S60.511A Abrasion of right hand, initial encounter; S60.512A Abrasion of left hand, initial encounter; S00.31XA Abrasion of nose, initial encounter; I10 Essential (primary) hypertension; E66.9 Obesity, unspecified; Z85.46 Personal history of malignant neoplasm of prostate; W19.XXXA Unspecified fall, initial encounter
CPT/HCPCS: 12013; 70450; 72125; 73130; 99283; J3490; 12011; 99284

== ENCOUNTER 2024-02-04 17:20 | Inpatient (IN) | payer MEDICARE, OTHER ==
[2024-02-04 17:45] LABS: BASOPHILS ABSOLUTE AUTO 0.04 K/uL (0.00-0.20); BASOPHILS PERCENT AUTO 0.3 % (0.0-1.0); EOSINOPHILS ABSOLUTE AUTO 0.08 K/uL (0.00-0.45); EOSINOPHILS PERCENT AUTO 0.7 % (0.0-6.0); HEMOGLOBIN 16.7 g/dL (14.0-18.0); IMMATURE GRAN ABSOLUTE AUTO 0.04 K/uL (0.00-0.05); IMMATURE GRAN PERCENT AUTO 0.3 % (0.0-0.4); LYMPHOCYTES ABSOLUTE AUTO 1.35 K/uL (1.00-4.80); LYMPHOCYTES PERCENT AUTO 11.4 % (24.0-44.0); MEAN CORPUSCULAR HEMOGLOBIN 31.8 pg (28.0-32.0); MEAN CORPUSCULAR HGB CONC 35.5 g/dL (32.0-36.0); MEAN CORPUSCULAR VOLUME 89.5 fL (83.0-99.0); MONOCYTES ABSOLUTE AUTO 0.76 K/uL (0.00-0.80); MONOCYTES PERCENT AUTO 6.4 % (0.0-8.0); NEUTROPHILS ABSOLUTE AUTO 9.59 K/uL (1.80-7.70); NEUTROPHILS PERCENT AUTO 80.9 % (41.0-71.0); PLATELET COUNT,PLT 205 K/uL (150-400); RED BLOOD CELL COUNT 5.25 M/uL (4.52-5.90); WHITE BLOOD CELL COUNT,WBC 11.86 K/uL (3.9-11.3)
[2024-02-04 18:05] LABS: INR 1.07 (0.86-1.11); PTT,PARTIAL THROMBOPLSTIN TIME 29.7 SEC (23.9-30.7)
[2024-02-04 18:11] LABS: A/G RATIO 1.1 (0.9-1.6); ALANINE AMINOTRANSFERASE,ALT 27 IU/L (14-63); ALKALINE PHOSPHATASE 97 U/L (46-116); ASPARTATE AMNIOTRANSFERASE,AST 23 IU/L (15-37); BILIRUBIN TOTAL 1.1 mg/dL (0.2-1.0); BLOOD UREA NITROGEN,BUN 18 mg/dL (7.0-18.0); CALCIUM 9.5 mg/dL (8.5-10.1); CARBON DIOXIDE,CO2 27.8 mmol/L (21.0-32.0); CHLORIDE,CL 107 mmol/L (98-107); CREATININE 1.3 mg/dL (0.8-1.3); GLUCOSE RANDOM 111 mg/dL (74-106); POTASSIUM,K 3.6 mmol/L (3.5-5.1); PROTEIN TOTAL,TP 7.8 g/dL (6.4-8.2); SODIUM,NA 145 mmol/L (136-148)
[2024-02-04] MEDS: Iopamidol 755 MG/ML 500 ML Multipack Bottle IVPUSH STA (18:13)
[2024-02-04 18:22] LABS: ESTIMATED GFR 56 mL/min (>60)
[2024-02-04 19:19] LABS: APPEARANCE,URINE CLEAR; BILIRUBIN,URINE NEGATIVE (NEGATIVE); COLOR,URINE YELLOW; GLUCOSE,URINE NEGATIVE (NEGATIVE); KETONES,URINE NEGATIVE (NEGATIVE); LEUKOCYTE ESTERASE,URINE NEGATIVE (NEGATIVE); NITRITE,URINE NEGATIVE (NEGATIVE); OCCULT BLOOD,URINE NEGATIVE (NEGATIVE); PROTEIN,URINE NEGATIVE (NEGATIVE)
[2024-02-04] MEDS ORDERED: Polyethylene Glycol 3350 Powder 17 GM Packet PO PRN (19:40)
[2024-02-04] MEDS ORDERED: Ondansetron 4 MG/2 ML SDV IVPUSH PRN (19:40)
[2024-02-04] MEDS ORDERED: Melatonin 3 MG Tab PO PRN (19:40)
[2024-02-04] MEDS ORDERED: Acetaminophen 325 MG Tab PO PRN (19:40)
[2024-02-04] MEDS: Aspirin 81 MG Tab.Chew PO STA (19:41)
[2024-02-04] MEDS: atorvaSTATin 40 MG Tab PO STA (19:42)
[2024-02-04] MEDS: Clopidogrel 75 MG Tab PO STA (19:42)
[2024-02-04 20:31] LABS: TSH ULTRASENSITIVE 0.8 uIU/mL (0.36-3.74)
[2024-02-04 20:39] LABS: HEMOGLOBIN A1C 5.4 %
[2024-02-04 20:56] LABS: CORONAVIRUS COVID-19 NAA NEGATIVE (NEGATIVE); INFLUENZA A NAA NEGATIVE (NEGATIVE); INFLUENZA B NAA NEGATIVE (NEGATIVE)
[2024-02-05 05:24] LABS: BASOPHILS ABSOLUTE AUTO 0.05 K/uL (0.00-0.20); BASOPHILS PERCENT AUTO 0.6 % (0.0-1.0); EOSINOPHILS ABSOLUTE AUTO 0.41 K/uL (0.00-0.45); EOSINOPHILS PERCENT AUTO 5.2 % (0.0-6.0); HEMATOCRIT 39.1 % (42.0-52.0); HEMOGLOBIN 14.1 g/dL (14.0-18.0); IMMATURE GRAN ABSOLUTE AUTO 0.02 K/uL (0.00-0.05); IMMATURE GRAN PERCENT AUTO 0.3 % (0.0-0.4); LYMPHOCYTES ABSOLUTE AUTO 1.53 K/uL (1.00-4.80); LYMPHOCYTES PERCENT AUTO 19.3 % (24.0-44.0); MEAN CORPUSCULAR HEMOGLOBIN 32.2 pg (28.0-32.0); MEAN CORPUSCULAR HGB CONC 36.1 g/dL (32.0-36.0); MEAN CORPUSCULAR VOLUME 89.3 fL (83.0-99.0); MEAN PLATELET VOLUME 9.9 fL (9.4-12.4); MONOCYTES ABSOLUTE AUTO 0.64 K/uL (0.00-0.80); MONOCYTES PERCENT AUTO 8.1 % (0.0-8.0); NEUTROPHILS ABSOLUTE AUTO 5.26 K/uL (1.80-7.70); NEUTROPHILS PERCENT AUTO 66.5 % (41.0-71.0); PLATELET COUNT,PLT 171 K/uL (150-400); RED BLOOD CELL COUNT 4.38 M/uL (4.52-5.90); WHITE BLOOD CELL COUNT,WBC 7.91 K/uL (3.9-11.3)
[2024-02-05 05:38] LABS: CALCIUM 8.7 mg/dL (8.5-10.1); CARBON DIOXIDE,CO2 28.1 mmol/L (21.0-32.0); CREATININE 1.1 mg/dL (0.8-1.3); EST CRCL DRUG DOSING (CG) 64.02 mL/min; MAGNESIUM 1.7 mg/dL (1.8-2.4); POTASSIUM,K 3.5 mmol/L (3.5-5.1)
[2024-02-05] MEDS: Gadobenate Dimeglumine 529 MG/ML 20 ML SDV IVPUSH ONE (09:25)
[2024-02-05] MEDS: Clopidogrel 75 MG Tab PO SCH (09:59)
[2024-02-05] MEDS: Aspirin 81 MG Tab.EC PO SCH (09:59)
[2024-02-05] MEDS: Dextrose 5%-0.9% NaCl 1,000 ML IV SCH (20:20)
[2024-02-05] MEDS: atorvaSTATin 40 MG Tab PO SCH (22:21)
[2024-02-05] MEDS ORDERED: 50% Dextrose in Water 50 ML Syringe IVPUSH PRN (22:26)
[2024-02-06 06:25] LABS: BASOPHILS ABSOLUTE AUTO 0.03 K/uL (0.00-0.20); BASOPHILS PERCENT AUTO 0.4 % (0.0-1.0); EOSINOPHILS ABSOLUTE AUTO 0.45 K/uL (0.00-0.45); HEMATOCRIT 38.8 % (42.0-52.0); HEMOGLOBIN 13.4 g/dL (14.0-18.0); IMMATURE GRAN ABSOLUTE AUTO 0.02 K/uL (0.00-0.05); IMMATURE GRAN PERCENT AUTO 0.3 % (0.0-0.4); LYMPHOCYTES ABSOLUTE AUTO 1.54 K/uL (1.00-4.80); LYMPHOCYTES PERCENT AUTO 20.6 % (24.0-44.0); MEAN CORPUSCULAR HEMOGLOBIN 31.4 pg (28.0-32.0); MEAN CORPUSCULAR HGB CONC 34.5 g/dL (32.0-36.0); MEAN CORPUSCULAR VOLUME 90.9 fL (83.0-99.0); MONOCYTES ABSOLUTE AUTO 0.56 K/uL (0.00-0.80); MONOCYTES PERCENT AUTO 7.5 % (0.0-8.0); NEUTROPHILS ABSOLUTE AUTO 4.86 K/uL (1.80-7.70); NEUTROPHILS PERCENT AUTO 65.2 % (41.0-71.0); PLATELET COUNT,PLT 158 K/uL (150-400); RED BLOOD CELL COUNT 4.27 M/uL (4.52-5.90); WHITE BLOOD CELL COUNT,WBC 7.46 K/uL (3.9-11.3)
[2024-02-06 06:50] LABS: ALBUMIN 2.9 g/dL (3.4-5.0); CALCIUM 8.1 mg/dL (8.5-10.1); CARBON DIOXIDE,CO2 25.5 mmol/L (21.0-32.0); CREATININE 1.1 mg/dL (0.8-1.3); EST CRCL DRUG DOSING (CG) 64.02 mL/min; MAGNESIUM 1.9 mg/dL (1.8-2.4); POTASSIUM,K 3.5 mmol/L (3.5-5.1); PROTEIN TOTAL,TP 5.7 g/dL (6.4-8.2)
[2024-02-06] MEDS: Glucagon,Human Recombinant 1 MG Vial IVPUSH SCH (08:14)
[2024-02-07 09:19] LABS: BASOPHILS ABSOLUTE AUTO 0.04 K/uL (0.00-0.20); BASOPHILS PERCENT AUTO 0.6 % (0.0-1.0); EOSINOPHILS ABSOLUTE AUTO 0.39 K/uL (0.00-0.45); EOSINOPHILS PERCENT AUTO 5.4 % (0.0-6.0); IMMATURE GRAN ABSOLUTE AUTO 0.01 K/uL (0.00-0.05); IMMATURE GRAN PERCENT AUTO 0.1 % (0.0-0.4); LYMPHOCYTES ABSOLUTE AUTO 1.33 K/uL (1.00-4.80); LYMPHOCYTES PERCENT AUTO 18.4 % (24.0-44.0); MEAN CORPUSCULAR HGB CONC 35.9 g/dL (32.0-36.0); MONOCYTES ABSOLUTE AUTO 0.45 K/uL (0.00-0.80); MONOCYTES PERCENT AUTO 6.2 % (0.0-8.0); NEUTROPHILS ABSOLUTE AUTO 4.99 K/uL (1.80-7.70); NEUTROPHILS PERCENT AUTO 69.3 % (41.0-71.0); PLATELET COUNT,PLT 171 K/uL (150-400); RED BLOOD CELL COUNT 4.38 M/uL (4.52-5.90); WHITE BLOOD CELL COUNT,WBC 7.21 K/uL (3.9-11.3)
[2024-02-07 09:39] LABS: BILIRUBIN TOTAL 1.2 mg/dL (0.2-1.0); CALCIUM 8.4 mg/dL (8.5-10.1); CARBON DIOXIDE,CO2 24.5 mmol/L (21.0-32.0); EST CRCL DRUG DOSING (CG) 70.42 mL/min; POTASSIUM,K 3.5 mmol/L (3.5-5.1); PROTEIN TOTAL,TP 6.1 g/dL (6.4-8.2)
[2024-02-07] MEDS ORDERED: Nystatin Crm 30 GM Tube TOP PRN (11:07)
[2024-02-07] MEDS: Furosemide 20 MG/2 ML VIAL IVPUSH ONE (14:43)
[2024-02-09] MEDS: Furosemide 20 MG/2 ML VIAL IVPUSH ONE (12:01)
[2024-02-10] MEDS ORDERED: Acetaminophen 325 MG Tab PO PRN (06:24)
== END 2024-02-12 08:45 | disposition home or self-care (01) | DRG 65 ==
LOC: MW.ED 17:20 → MW.MS 19:28 → UNDODISIN 02-12 08:45
PROVIDERS: ADMIT Family Medicine; ATTEND Internal Medicine
DX: I63.9 Cerebral infarction, unspecified (principal); G81.94 Hemiplegia, unspecified affecting left nondominant side; Z66 Do not resuscitate; G45.9 Transient cerebral ischemic attack, unspecified; R29.700 NIHSS score 0; M54.2 Cervicalgia; G89.29 Other chronic pain; I44.0 Atrioventricular block, first degree; E66.9 Obesity, unspecified; I10 Essential (primary) hypertension; H54.7 Unspecified visual loss; Z85.828 Personal history of other malignant neoplasm of skin; Z68.31 Body mass index [BMI] 31.0-31.9, adult
CPT/HCPCS: 0240U; 36415; 70450; 70496; 70498; 70553; 71045; 72125; 80048; 80053; 80061; 81003; 82607; 82947; 83036; 83735; 84443; 84484; 85025; 85610; 85730; 92526; 92610; 93005; 97110; 97163; 97166; 97530; 99285; 93010; 99222; 99231; 99232; 99239; 99284; A9270-GY; A9577; J1940; J7042; Q9967